=== PATIENT | female | born 2000 | race Caucasian/White ===

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

== ENCOUNTER 2022-01-28 12:54 | Emergency (ER) | payer OTHER, SELFPAY ==
[2022-01-28 13:30] VITALS: BP 122/57; PULSE 84; RESP 16; TEMP 37.1; O2SAT 100
--- NOTE | 2022-01-28 14:35 | ED.URI ---
HPI - URI/Sore Throat General Chief Complaint: Upper Respiratory Infection Stated Complaint: sore throat Time Seen by Provider: 01/28/22 14:35 History of Present Illness HPI Narrative: 21-year-old female presented for complaint of sore throat and swollen tonsils, onset of pain last night. Endorses pain is worse with swallowing and voice is hoarse. She states she has had a history of mono in high school. She endorses vaping for 5 years and occasional marijuana use. She denies concern for STD. She cough, shortness of breath, denies nausea, vomiting, fevers or chills. Related Data Allergies Allergy/AdvReac Type Severity Reaction Status Date / Time No Known Allergies Allergy Verified 01/28/22 14:09 Review of Systems Review of Systems: CONSTITUTIONAL: Denies body aches, fever, chills, or sweats. EYES: Denies visual changes, redness, or discharge. ENT: Denies rhinorrhea, congestion, or otalgia. CARDIOVASCULAR: Denies chest pain, palpitations, or edema. RESPIRATORY: Denies dyspnea. GASTROINTESTINAL: Denies abdominal pain, nausea, vomiting, or diarrhea. SKIN: Denies rash, itching, or wounds. MUSCULOSKELETAL: Denies back pain, joint pain, or myalgia. NEUROLOGIC: Denies headache Exam Narrative: GENERAL: Ill-appearing, no acute distress. EYES: conjunctivae clear ENT: Mucous membranes moist. TMs pearly crouch with normal light reflex bilaterally; no tragal tenderness. Oropharynx erythematous without lesions. Tonsils enlarged, Left 3+ touching uvula, right 2+ with bilateral black/green exudate. No drooling, no trismus, uvula midline. No tripod positioning, hot potato voice, or soft palate swelling. NECK: Bilat anterior cervical lymphadenopathy CHEST: Clear to auscultation, breath sounds equal. No respiratory distress, speaks in full sentences. HEART: Regular rate and rhythm. No murmur heard. SKIN: Warm, dry, no rash. NEURO: Alert and oriented x3. Course Course Emergency Course: Patient is aware of diagnosis, understands and agrees to treatment plan. Anticipatory guidance given. Patient agrees to follow-up as directed and is aware of reasons to seek care at the emergency department. Portions of this record may have been created with voice recognition software Level of Care: Express Care Visit Vital Signs Vital signs: Vital Signs Temperature 98.7 F 10/17/22 13:30 Pulse Rate 84 01/28/22 13:30 Respiratory Rate 16 01/28/22 13:30 Blood Pressure 122/57 L 01/28/22 13:30 Pulse Oximetry 100 01/28/22 13:30 Oxygen Delivery Room Air 01/28/22 13:30 Temperature 98.7 F 01/28/22 13:30 Pulse Rate 84 01/28/22 13:30 Respiratory Rate 16 01/28/22 13:30 Blood Pressure 122/57 L 01/28/22 13:30 Pulse Oximetry 100 01/28/22 13:30 Oxygen Delivery Room Air 01/28/22 13:30 MDM - URI/Sore Throat MDM Narrative Medical decision making narrative: Neg mono and strep result reviewed with pt. Based on PE, will send Rx steroid and abx, Advised supportive treatments and discussed s/s to go to the ER at length. Recommend f/u with ENT. Patient is appropriate for outpatient treatment and follow-up. Differential Diagnosis Differential diagnosis: Likely upper respiratory infection, viral infection and pharyngitis Lab Data Labs: Lab Results 01/28/22 Range/Units 15:00 Ref Lab Test Name Pending Ref Lab Test Result Pending Strep Screen Presumptive Negative *(Reference Range: Negative)* [place] Screen Negative (Reference Range: Negative) Discharge Plan Discharge Clinical Impression: Acute tonsillitis Patient Disposition: Home, Self-Care Condition: Stable Instructions: Antibiotic Form, Tonsillitis (ED) Additional Instructions: Rapid strep swab was negative today You will be notified in a few days if the culture comes back positi
[2022-01-28] MEDS: predniSONE 20 MG TABLET 60 MG PO (15:24)
--- NOTE | 2022-01-28 15:33 | PC.NURSE ---
01/28/22 1450 CALLED MIA AT [facility] WHOM GAVE INSTRUCTIONS ON PROPER COLLECTION AND ORDERING OF GC/CHYLAMDIA THROAT SPECIMEN. DENIA FAXED ORDER TO [facility] AND RECEIVED AND BATCHED THE ORDER. DENIA ALSO ADVISED TO SEND SPECIMEN TO [facility]. Jessika MCKEON RN
== END 2022-01-28 15:30 | disposition home or self-care (01) ==
PROVIDERS: Emergency Provider Nurse Practitioner Family
DX: J03.90 Acute tonsillitis, unspecified (principal)
CPT/HCPCS: 36415; 36416; 86308; 87081; 87491; 87591; 87880; 99213; G0463; J7512

== ENCOUNTER 2023-12-17 09:04 | Emergency (ER) | payer OTHER, SELFPAY ==
--- NOTE | 2023-12-17 09:14 | ED.URI ---
HPI - URI/Sore Throat General Chief Complaint: Upper Respiratory Infection Stated Complaint: Sore Throat Time Seen by Provider: 12/17/23 10:02 Source: patient and RN notes reviewed Mode of arrival: ambulatory Limitations: no limitations History of Present Illness HPI Narrative: 23-year-old female presents with concern for sore throat, nasal congestion that started on Friday. Reports she missed work yesterday. Reports she feels slightly better today. She reports she took multi symptom cold medicine. Denies fever, chills, sweats. MD elicited complaint: sore throat Related Data Allergies Allergy/AdvReac Type Severity Reaction Status Date / Time No Known Allergies Allergy Verified 01/28/22 14:09 Review of Systems Review of Systems: CONSTITUTIONAL: Denies malaise, chills, sweats, or fever. EYES: Denies visual changes, redness, or discharge. ENT: Reports rhinorrhea, congestion, sore throat. Denies sinus pain, otalgia CARDIOVASCULAR: Denies chest pain, palpitations, or edema. RESPIRATORY: Denies cough. Denies dyspnea. GASTROINTESTINAL: Denies abdominal pain, nausea, vomiting, diarrhea SKIN: Denies rash or itching. MUSCULOSKELETAL: Denies myalgia. NEUROLOGIC: Denies headache. All systems reviewed & are unremarkable except as noted in HPI and below PMFSH Comments At time of signature, agree with nursing past medical, surgical, social and family history. There is no relevant family history pertinent to the presenting complaint Exam Narrative: GENERAL: Well-appearing, well-nourished, and in no acute distress. HEAD: Normocephalic EYES: PERRLA, conjunctivae clear ENT: Nares clear, turbinates edematous and erythematous, clear discharge. Mucous membranes moist. TM pearly crouch with dull light reflex bilaterally; no tragal tenderness. Oropharynx not erythematous without lesions. Tonsils not enlarged and without exudate, no drooling, no hoarseness, no trismus, uvula midline. NECK: Supple. No lymphadenopathy CHEST: Clear to auscultation, breath sounds equal. No wheezing, rhonchi, rales, or stridor. No respiratory distress, speaks in full sentences. HEART: Regular rate and rhythm. No murmur heard. SKIN: Warm, dry, no rash. NEURO: Alert and oriented x3. PSYCH: Normal mood and affect Course Course Emergency Course: Patient is aware of diagnosis, understands and agrees to treatment plan. Anticipatory guidance given. Patient agrees to follow-up as directed and is aware of reasons to seek care at the emergency department. Portions of this record may have been created with voice recognition software Level of Care: Express Care Visit Vital Signs Vital signs: Reviewed. MDM - URI/Sore Throat MDM Narrative Medical decision making narrative: Differential diagnosis considered: Stewart virus, strep pharyngitis, allergic rhinitis, upper respiratory tract infection, sinusitis, rhinosinusitis, nasopharyngitis. viral pharyngitis, otitis media, otitis externa, pneumonia, bronchitis, viral cough syndrome, viral syndrome, and influenza. Exam findings show no acute concerns or changes; patient is non-toxic appearing and is in no distress. Patient is appropriate for outpatient treatment and follow-up. Lab Data Attestation: I reviewed the patient's lab results. Critical Care Time Critical Care Time Critical Care Time: No Discharge Plan Discharge Clinical Impression: Upper respiratory infection Patient Disposition: Home, Self-Care Condition: Stable Instructions: Upper Respiratory Infection (ED) Additional Instructions: Your rapid strep swab was negative today at [facility]. A throat culture will be sent to the laboratory for further testing. If the test is positive, you will receive a phone call within 48 hours and an appropriate antibiotic will be initiated at that time. Your symptoms are likely due to a viral illness, which is not treated with antibiotics. Viral symptoms can be present for up to a few weeks. -Altern
[2023-12-17 09:16] VITALS: BP 104/75; PULSE 77; RESP 16; TEMP 37.2; O2SAT 100
[2023-12-17 10:09] LABS: EDSTREPNEGPOS1 Negative
== END 2023-12-17 10:14 | disposition home or self-care (01) ==
PROVIDERS: Emergency Provider Nurse Practitioner
DX: J06.9 Acute upper respiratory infection, unspecified (principal)
CPT/HCPCS: 87081; 87880; 99213; G0463

== ENCOUNTER → 2024-12-01 13:52 | Outpatient (REF) | payer OTHER, SELFPAY ==
--- NOTE | 2024-12-01 13:52 | S_PTH ---
PATIENT: Manisha Ramírez LOC: [facility] U#:[id number] AGE/SX: 25/F ROOM: RE12/01/[address]: Carine Ferreira MD : 2000 BED: DIS: SPEC #: [id number] RECD: 12/02/24 08:57 STATUS: GRACY PULLIAM #: [id number] LEON: 12/01/24 13:[address]: Carine Ferreira DEPT: [facility] Surgical RECD BY: Adriane Schuler ENTERED: 12/02/24 08:57 SP TYPE: Surgical OTHR DR: UNKNOWN,DOCTOR Tissues: A - Cyst Procedures: Hematoxylin and Eosin Stain Gross and Microscopic Level 4
--- OUTSIDE RECORDS SUMMARY | 2024-12-01 14:18 | XMS_ITS | Clinical Summary ---
Author Organization [facility] Address [address] [place] [address] Care Team Providers Care Library Media Specialist Name Role Phone Unavailable Primary Care Provider Unavailabl e Source Comments [facility],non-owned Affiliates and Associated Physician Practices is amultiple site organization consisting of ambulatory clinics and hospital sitesin [place], [place], [place] and [place]. This disclosure is being madepursuant to the Care Everywhere program and may not contain all information available regarding this patient. Last updated 18.[employer] [facility] Allergies No known active allergies Medications * Be aware that medications may not be up to date on this document. Alwaysverify current medications with the patient. OtherIndication s:acne medication name unsure Reasons: acne medication name unsure Active Family History Medical History Relation Name Comments Diabetes - Type 2 Maternal Grandmother Hypertension Maternal Grandmother Relation Name Status Comments Maternal Grandmother Social History Tobacco Use Types Packs/Day Years Used Date Smoking Tobacco: Never Smokeless Tobacco: Never Comments Unknown Sex and Gender Information Value Date Recorded Sex Assigned at Not on file Legal Sex Female 5:46 AM CREDIT CARD ANALYST Gender Identity Not on file Sexual Orientation Not on file Last Filed Vital Signs Vital Sign Reading Time Taken Comments Blood Pressure 108/64 02/17/2018 11:45 AM CREDIT CARD ANALYST Pulse 60 02/17/2018 11:45 AM CREDIT CARD ANALYST Temperature 37.1 C (98.7 F) 02/17/2018 11:45 AM CREDIT CARD ANALYST Respiratory Rate - - Oxygen Saturation 98% 02/17/2018 11:45 AM CREDIT CARD ANALYST Inhaled Oxygen Concentration - - Weight 71.7 kg (158 lb) 02/17/2018 11:45 AM CREDIT CARD ANALYST Height 171.5 cm (5' 7.5) 02/17/2018 11:45 AM CS T Body Mass Index 24.38 02/17/2018 11:45 AM CREDIT CARD ANALYST Plan of Treatment Health Maintenance Due Date Last Done Comments HIV SCREENING 02/11/2016 HPV VACCINE (1 - 3-dose series) 02/11/2016 CHLAMYDIA/GONORRHEA SCREENING 2017 MENINGOCOCCAL (Group B) VACC INE SHARED DECISION-MAKING (1 of 2 - Standard) 2017 HEPATITIS C SCREENING 02/06/2019 DTAP/TDAP/TD VACCINES (1 - Tdap) 02/11/2020 HEPATITIS B VACCINE (1 of 3 - 19+ 3-dose series) 02/11/2020 COVID-19 VACCINE (1 - 2023-2 5 season) 2023 DEPRESSION SCREENING 04/14/2024 INFLUENZA VACCINE (#1) 2024 ZOSTER VACCINE (1 of 2) 2051 HIB VACCINE Aged Out No longer eligi ble based on patient's age to complete this topic MENINGOCOCCAL GROUPS A/C/Y/W VACCINE Aged Out No longer eligible b ased on patient's age to complete this topic PNEUMOCOCCAL VACCINE Aged Out No long er eligible based on patient's age to complete this topic
== END ==
LOC: ANHLAB 13:52
PROVIDERS: Visit Provider Plastic Surgery
DX: L98.9 Disorder of the skin and subcutaneous tissue, unspecified (principal)
CPT/HCPCS: 88305

== ENCOUNTER 2025-04-05 08:39 | Emergency (ER) | payer OTHER, SELFPAY ==
[2025-04-05 08:41] VITALS: BP 89/64; PULSE 86; RESP 16; TEMP 36.8; O2SAT 98
--- OUTSIDE RECORDS SUMMARY | 2025-04-05 08:45 | XMS_ITS | Clinical Summary ---
Author Organization [facility] Address [address] [place] [address] Care Team Providers Care Senior Analysis Specialist Name Role Phone Unavailable Primary Care Provider Unavailabl e Source Comments [facility],non-owned Affiliates and Associated Physician Practices is amultiple site organization consisting of ambulatory clinics and hospital sitesin [place], [place], [place] and [place]. This disclosure is being madepursuant to the Care Everywhere program and may not contain all information available regarding this patient. Last updated 18.[employer] [facility] Allergies No known active allergies Medications * [...] on file Legal Sex Female 5:46 AM NETWORK INTERN Gender Identity Not on file Sexual Orientation Not on file Last Filed Vital Signs Vital Sign Reading Time Taken Comments Blood Pressure 108/64 02/17/2018 11:45 AM NETWORK INTERN Pulse 60 02/17/2018 11:45 AM NETWORK INTERN Temperature 37.1 C (98.7 F) 02/17/2018 11:45 AM NETWORK INTERN Respiratory Rate - - Oxygen Saturation 98% 02/17/2018 11:45 AM NETWORK INTERN Inhaled Oxygen Concentration - - Weight 71.7 kg (158 lb) 02/17/2018 11:45 AM NETWORK INTERN Height 171.5 cm (5' 7.5) 02/17/2018 11:45 AM CS T Body Mass Index 24.38 02/17/2018 11:45 AM NETWORK INTERN Plan of Treatment Health Maintenance Due Date Last Done Comments HIV SCREENING 02/11/2016 HPV VACCINE (1 - 3-dose series) 02/11/2016 CHLAMYDIA/GONORRHEA SCREENING 2017 HEPATITIS C SCREENING 02/06/2019 DTAP/TDAP/TD VACCINES (1 - Tdap) 02/11/2020 HEPATITIS B VACCINE (1 of 3 - 19+ 3-dose series) 02/11/2020 PAP SMEAR 2022 DEPRESSION SCREENING 04/14/2024 COVID-19 VACCINE (1 - 2024-2 6 season) 2024 INFLUENZA VACCINE (#1) 2024 ZOSTER VACCINE (1 of 2) 2051 HIB VACCINE Aged Out No longer eligi ble based on patient's age to complete this topic MENINGOCOCCAL (Group B) VACC INE SHARED DECISION-MAKING Aged Out No longer eligibl e based on patient's age to complete this topic MENINGOCOCCAL GROUPS A/C/Y/W VACCINE Aged Out No longer eligible b ased on patient's age to complete this topic PNEUMOCOCCAL VACCINE Aged Out No long er eligible based on patient's age to complete this topic Insurance SELF PAY NO INSURANCE Member Subscriber Plan / Payer (Ef fective for All Dates) Name:Chio Ba Member ID:Not on file Relation to Subscriber:Not on file Name:CHIO BA Subscriber ID:Not on file (Home) Address: [address] [place] [id number] Payer ID:Not on file Group ID:Not on file Type:Self Pay Address: [facility]
[2025-04-05 08:53] VITALS: BP 92/68
--- NOTE | 2025-04-05 09:52 | ED.GENADULT ---
HPI - General Adult General Chief complaint: Unspecified Stated complaint: food poisoning/needs dr note Time Seen by Provider: 04/05/25 09:30 Source: patient and RN notes reviewed Mode of arrival: ambulatory Limitations: no limitations History of Present Illness HPI narrative: 25-year-old female presents Express Care complaining of nausea, vomiting, diarrhea for 2 days. Patient says she might have food poisoning, she said ate salmon the night prior. Since then the patient has had nausea, vomiting, diarrhea. Patient reports some epigastric discomfort. Patient reports brown watery stools. Patient says she has multiple episodes throughout the day, patient last vomited this morning. Patient has been able to keep fluids down after each episode of emesis. Patient has any fevers, body aches, chills, upper respiratory symptoms, any other symptoms. Related Data Allergies Allergy/AdvReac Type Severity Reaction Status Date / Time No Known Allergies Allergy Verified 04/05/25 08:53 Review of Systems Review of Systems: CONSTITUTIONAL: Denies fever, chills, body aches, or sweats. EYES: Denies visual changes, redness, or discharge. ENT: Denies rhinorrhea, congestion, sore throat, or otalgia. CARDIOVASCULAR: Denies chest pain, palpitations, or edema. RESPIRATORY: Denies cough or dyspnea. GASTROINTESTINAL: Denies vomiting blood, bloody stools, hematochezia. Positive for epigastric pain, nausea, vomiting, or diarrhea. GENITOURINARY: Denies dysuria or hematuria. SKIN: Denies rash or itching. MUSCULOSKELETAL: Denies back pain, joint pain, or myalgia. NEUROLOGIC: Denies headache, numbness, or weakness. PSYCHIATRIC: Denies anxiety or depression. All other systems reviewed are negative, except as documented in HPI. [facility] Social History Social History Social History: Caffeine-daily Smoking status: Never smoker Alcohol intake: never Substance use: never Substance use type: does not use Exam Narrative: GENERAL: This is a well-nourished, well-developed adult, in no apparent distress. They are non ill-appearing, nontoxic appearing. HEAD: normocephalic, atraumatic. EYES: Sclera clear/white. Vision is grossly intact. Conjunctiva normal bilaterally. Extraocular movements intact. EARS: External ears normal, Hearing grossly intact. NOSE: External nose normal THROAT: Mucous membranes moist NECK: Normal range of motion CARDIOVASCULAR: Regular rate and rhythm. No clicks, gallops, rubs or murmurs. RESPIRATORY: Respiratory rate normal, respiratory effort nonlabored, no respiratory distress. Lungs are clear auscultation. Breath sounds equal bilaterally. No adventitious lung sounds. GASTROINTESTINAL: Abdomen soft, flat, non-tender, nondistended. Bowel sounds are active. No hepato-splenomegaly, or palpable masses. No guarding or rigidity. No rebound tenderness. SKIN: warm, Dry, intact with no suspicious lesions or rash, good texture and turgor. NEURO: awake, alert, and oriented to person, place and time. There were no obvious focal neurologic abnormalities. EXTREMITIES: No joint tenderness, effusion, or edema noted. BACK: Nontender without deformity. No CVA tenderness. Course Course Level of Care: Express Care Visit Vital Signs Vital signs: Vital Signs Temperature 98.2 F 04/05/25 08:41 Pulse Rate 86 04/05/25 08:41 Respiratory Rate 16 04/05/25 08:41 Blood Pressure 89/64 L 04/05/25 08:41 Pulse Oximetry 98 04/05/25 08:41 Oxygen Delivery Room Air 04/05/25 08:41 Temperature 98.2 F 04/05/25 08:41 Pulse Rate 86 04/05/25 08:41 Respiratory Rate 16 04/05/25 08:41 Blood Pressure 92/68 L 04/05/25 08:53 Pulse Oximetry 98 04/05/25 08:41 Oxygen Delivery Room Air 04/05/25 08:41 [facility] Narrative Medical decision making narrative: No peritoneal findings, no abdominal tenderness. Moist mucous membranes, no tachycardia, patient is not appear clinically dehydrated, patient's blood pressure was borderline, palpable peripheral pulses, normal MAP. Patient will keep fluids down. Patient likely has gastroenteritis. Will send her home with soap for nausea vomiting. Discussed supportive care and encourage fluids and electrolyte drinks. Strict ER precautions discussed with patient specially if she is unable to keep anything down, concerns of dehydration, severe abdominal pains, fevers or any serious concerns. Discussed physical exam findings. Advised supportive measures and signs/symptoms to go to the ER. Pt is appropriate for outpt treatment and f/u. Differential Diagnosis Differential Diagnosis: Differential diagnostic considerations for nausea/vomiting/diarrhea include gastroenteritis, appendicitis, IBD, intestinal obstruction, clostridium difficile, food poisoning, peritonitis, IBS, dehydration, ischemic bowel, pancreatitis, drug induced nausea/vomiting. Discharge Plan Discharge Clinical Impression: Gastroenteritis Patient Disposition: Home Condition: Stable Instructions: Gastroenteritis (ED) Additional Instructions: It is likely have a gastroenteritis. This is normally a self-limiting condition or resolve within 24-72 hours. However sometimes symptoms may linger on up to 7 days. It is recommended not to take anything for the diarrhea and allow the diarrhea to run its course. If the diarrhea persist and you feeling better, you may take Pepto-Bismol as needed to help control the diarrhea. Recommend hydration with plenty of fluids electrolyte supplementation such as Pedialyte. Follow-up PCP in 3-5 days. You may take Zofran as needed for nausea or vomiting. If Your unable to keep anything down, you developed severe abdominal pain, fevers, uncontrollable diarrhea, concerns of dehydration, or any other concerns please go to the ER immediately. Patient Language: Cuban Prescriptions: New ondansetron 4 mg tablet,disintegrating 4 mg PO Q8H PRN (Reason: nausea and vomiting) Qty: 12 0RF Follow-up/Referrals: PHYSICIAN,[facility] CONSULTANT [Primary Care Provider, Internal Medicine] Stand Alone Forms: Work/School Release IP Time of Disposition: 09:36
== END 2025-04-05 09:41 | disposition home or self-care (01) ==
DX: K52.9 Noninfective gastroenteritis and colitis, unspecified (principal)
CPT/HCPCS: 99213; G0463